=== PATIENT | male | born 1965 | race African-American/Black ===

== ENCOUNTER → 2020-05-19 | Outpatient (CLI) | payer BC, OTHER ==
[2020-05-19 12:35] LABS: MALB URINE SIEMENS 18.4 MG/L
[2020-05-19 12:40] LABS: ALBUMIN 3.8 GM/DL (3.2-5.2); BILIRUBIN,TOTAL 0.3 MG/DL (0.2-1.0); CALCIUM LEVEL 9.6 MG/DL (8.5-10.1); CREATININE FOR GFR 1.65 MG/DL (0.70-1.30); POTASSIUM SERUM 4.4 MEQ/L (3.5-5.1); TOTAL PROTEIN 7.5 GM/DL (6.4-8.2)
== END ==
LOC: M LAB 10:44
PROVIDERS: ATTEND Nurse Practitioner Family
DX: E11.9 Type 2 diabetes mellitus without complications (principal)

== ENCOUNTER → 2020-05-19 | Outpatient (CLI) | payer BC, OTHER ==
[2020-05-19 11:36] LABS: HEMATOCRIT 39.7 % (42.0-52.0); HEMOGLOBIN 12.9 g/dl (13.5-17.5)
== END ==
LOC: M LAB 10:48
PROVIDERS: ATTEND Nurse Practitioner Family
DX: E29.1 Testicular hypofunction (principal)

== ENCOUNTER → 2020-06-11 | Outpatient (CLI) | payer BC, OTHER | LOC: M LAB 12:48 | PROVIDERS: ATTEND Nurse Practitioner Family | DX: N40.0 Benign prostatic hyperplasia without lower urinary tract symptoms (principal) | CPT/HCPCS: 36415; G0103 ==

== ENCOUNTER → 2020-07-11 | Outpatient (CLI) | payer BC, OTHER ==
[2020-07-11 09:33] LABS: HEMATOCRIT 41.1 % (42.0-52.0); HEMOGLOBIN 13.2 g/dl (13.5-17.5)
== END ==
LOC: M LAB 08:50
PROVIDERS: ATTEND Nurse Practitioner Family
DX: E29.1 Testicular hypofunction (principal)

== ENCOUNTER → 2020-08-12 | Outpatient (CLI) | payer BC ==
--- NOTE | 2020-08-12 15:28 | REP ---
INDICATION: N63.0 R BREAST LUMP. Patient reports a palpable lump that he initially thought it was a sebaceous cyst. He tried 2 pop it. It swelled up to cord ower size and has since gone down somewhat. Positive family history breast cancer in mother. Lump at the 11 to 12 o'clock position right breast. COMPARISON: None. TECHNIQUE: Targeted right breast sonography 11 to 12 o'clock position in the area of the palpable abnormality. FINDINGS: At the level of the palpable abnormality. There is a ill-defined localized area of dermal thickening. Within the dermis there is hypoechoic area suggesting fluid with enhanced through transmission and a possible hypoechoic tract in into the underlying breast tissue. The underlying breast tissue is hyperechoic consistent with inflamed subcutaneous fat. The intradermal hypoechoic area measures 0.4 x 0.2 x 0.5 cm. This appears to extend virtually to the superficial surface of the dermis. The possible hypoechoic tract into the inflamed underlying tissue measures 0.6 cm in length. No breast mass is seen. There is no evidence of simple cyst. IMPRESSION: Findings are most consistent with inflammatory lesion of the dermis with inflammatory edema in the underlying fat. No masslike features are seen. BI-RADS category is felt to be best assigned as BI-RADS category 3 probably benign findings. Clinical follow-up is recommended. Suggest follow-up ultrasound in 2-3 months. Follow-up sonographic imaging should be considered if his signs and symptoms fail to regress or if they progress. <Electronically signed by Chente Murray > 08/12/20 1325
== END ==
LOC: M WHC 13:18
PROVIDERS: ATTEND Nurse Practitioner Family
DX: N63.0 Unspecified lump in unspecified breast (principal)

== ENCOUNTER → 2020-09-17 | Outpatient (CLI) | payer BC ==
[2020-09-17 10:57] LABS: HEMOGLOBIN A1c 9.4 %
== END ==
LOC: M LAB 09:26
PROVIDERS: ATTEND Nurse Practitioner Family
DX: E11.9 Type 2 diabetes mellitus without complications (principal)

== ENCOUNTER → 2020-10-03 | Outpatient (CLI) | payer BC ==
[2020-10-03 11:24] LABS: HEMATOCRIT 45.7 % (42.0-52.0); HEMOGLOBIN 14.8 g/dl (13.5-17.5)
[2020-10-06 18:07] LABS: TESTOSTERONE FREE (DIRECT) 11.2 pg/mL (7.2-24.0)
== END ==
LOC: M LAB 09:40
PROVIDERS: ATTEND Nurse Practitioner Family
DX: E29.1 Testicular hypofunction (principal); Z12.5 Encounter for screening for malignant neoplasm of prostate
CPT/HCPCS: 36415; 84402; 84403; 85014; 85018; G0103

== ENCOUNTER → 2020-12-28 | Outpatient (CLI) | payer BC ==
[2020-12-28 10:37] LABS: HEMATOCRIT 51.4 % (42.0-52.0); HEMOGLOBIN 16.5 g/dl (13.5-17.5)
[2020-12-29 12:10] LABS: TESTOSTERONE FREE (DIRECT) 9.7 pg/mL (7.2-24.0)
== END ==
LOC: M LAB 10:01
PROVIDERS: ATTEND Nurse Practitioner Family
DX: E29.1 Testicular hypofunction (principal)

== ENCOUNTER → 2020-12-28 | Outpatient (CLI) | payer BC ==
[2020-12-28 11:46] LABS: HEMOGLOBIN A1c 8.8 %
== END ==
LOC: M LAB 09:58
PROVIDERS: ATTEND Nurse Practitioner Family
DX: E11.9 Type 2 diabetes mellitus without complications (principal)

== ENCOUNTER → 2020-12-30 | Outpatient (REF) | LOC: M LAB 09:37 | PROVIDERS: ATTEND Nurse Practitioner Adult Health | DX: Z02.89 Encounter for other administrative examinations (principal) ==

== ENCOUNTER 2022-01-17 10:37 | Inpatient (IN) | payer BC, OTHER ==
[~2022-01-17] VITALS: Ht 177.8 cm; Wt 112.4 kg
[2022-01-17] MEDS ORDERED: NS 500 ML IV ONE (16:05)
[2022-01-17] MEDS ORDERED: ISOVUE-370 76% 100ML VIAL As Ordered ONE (16:47)
[2022-01-17 17:08] LABS: BASO # 0.1 10^3/uL (0.0-0.2); BASO % 0.6 % (0.0-1.0); EOS # 0.1 10^3/uL (0.0-0.5); EOS % 1.3 % (0.0-3.0); HEMATOCRIT 54.1 % (42.0-52.0); LYMPH # 2.4 10^3/uL (1.5-5.0); LYMPH % 29.8 % (24.0-44.0); MEAN CORPUSCULAR HEMOGLOBIN 32.9 pg (27.0-33.0); MEAN CORPUSCULAR HGB CONC 33.3 g/dl (32.0-36.5); MEAN CORPUSCULAR VOLUME 98.9 fl (80.0-96.0); MONO # 0.7 10^3/uL (0.0-0.8); MONO % 8.7 % (2.0-8.0); NEUTROPHILS # 4.9 10^3/uL (1.5-8.5); NEUTROPHILS % 59.4 % (36.0-66.0); PLATELET COUNT, AUTOMATED 236 10^3/uL (150-450); RED BLOOD COUNT 5.47 10^6/uL (4.30-6.10); WHITE BLOOD COUNT 8.2 10^3/uL (4.0-10.0)
[2022-01-17 17:26] LABS: RSV AMPLIFICATION NEGATIVE (NEGATIVE)
[2022-01-17 17:29] LABS: INR 0.93; PROTHROMBIN TIME 12.7 SECONDS (12.5-14.5)
[2022-01-17 17:30] LABS: CALCIUM LEVEL 10.2 MG/DL (8.5-10.1); CREATININE FOR GFR 1.77 MG/DL (0.70-1.30); GLOMERULAR FILTRATION RATE 42.4 (>56); PARTIAL THROMBOPLASTIN TIME 25.2 SECONDS (24.8-34.2); POTASSIUM SERUM 4.4 MEQ/L (3.5-5.1)
[2022-01-17 17:41] LABS: CK-MB VALUE MASS 1.5 NG/ML (<3.6); MB/CK RELATIVE INDEX 0.3 (< OR =4)
[2022-01-17 19:13] LABS: CK-MB VALUE MASS 1.6 NG/ML (<3.6); MB/CK RELATIVE INDEX 0.32 (< OR =4)
[2022-01-17] MEDS ORDERED: ASPIRIN 81 MG CHEW TABLET PO ONE (19:15)
[2022-01-17] MEDS ORDERED: ROSU40TA4 PO (20:05)
[2022-01-17] MEDS ORDERED: METF10004 PO (20:05)
[2022-01-17] MEDS ORDERED: CLOP75TA2 PO (20:05)
[2022-01-17] MEDS ORDERED: IRBE75TA4 PO (20:05)
[2022-01-17] MEDS ORDERED: GLIM2TAB29 PO (20:05)
[2022-01-17] MEDS ORDERED: AMLO1TAB25 PO (20:05)
[2022-01-17] MEDS ORDERED: BUSP10TA PO (20:05)
[2022-01-17] MEDS ORDERED: SILD20TA11 PO (20:05)
[2022-01-17] MEDS ORDERED: CHLO125TA PO (20:05)
[2022-01-17] MEDS ORDERED: ACET32TAB PO (20:05)
[2022-01-17] MEDS ORDERED: METO200T28 PO (20:05)
[2022-01-17] MEDS ORDERED: TAMS1CAP17 PO (20:05)
[2022-01-17] MEDS ORDERED: SPIR100T3 PO (20:05)
[2022-01-17 20:09] LABS: CHOLESTEROL RISK RATIO 4.731 (<5); HEMOGLOBIN A1c 8.7 %
[2022-01-17] MEDS: INSULIN LISPRO (NovoLOG) PER UNIT SC SCH (21:00)
[2022-01-17] MEDS ORDERED: ACETAMINOPHEN 325 MG TAB PO PRN (23:20)
[2022-01-17] MEDS ORDERED: GLUCAGON INJ 1MG VIAL SC PRN (23:30)
[2022-01-17] MEDS ORDERED: DEXTROSE 50% 50 ML SYRINGE IV PRN (23:30)
[2022-01-17] MEDS ORDERED: GLUCOSE 4GM CHEW TABLET PO PRN (23:30)
[2022-01-18] MEDS: busPIRone 10 MG TAB PO SCH ×3 (00:27→20:51)
[2022-01-18] MEDS: HEPARIN SOD (PORCINE) 5000UNITS/ML 1ML VIAL/SYRINGE SC SCH ×3 (06:19→20:51)
[2022-01-18] MEDS: INSULIN LISPRO (NovoLOG) PER UNIT SC SCH ×5 (07:30→20:35)
[2022-01-18 07:49] LABS: CALCIUM LEVEL 9.5 MG/DL (8.5-10.1); CREATININE FOR GFR 1.7 MG/DL (0.70-1.30); GLOMERULAR FILTRATION RATE 44.4 (>56); POTASSIUM SERUM 4.3 MEQ/L (3.5-5.1)
[2022-01-18 08:05] LABS: MAGNESIUM LEVEL 2.1 MG/DL (1.8-2.4)
[2022-01-18 08:48] LABS: BASO # 0.1 10^3/uL (0.0-0.2); BASO % 0.6 % (0.0-1.0); EOS # 0.2 10^3/uL (0.0-0.5); EOS % 1.8 % (0.0-3.0); HEMATOCRIT 48.6 % (42.0-52.0); HEMOGLOBIN 16.2 g/dl (13.5-17.5); LYMPH # 2.4 10^3/uL (1.5-5.0); LYMPH % 28.5 % (24.0-44.0); MEAN CORPUSCULAR HEMOGLOBIN 32.7 pg (27.0-33.0); MEAN CORPUSCULAR HGB CONC 33.3 g/dl (32.0-36.5); MONO # 0.7 10^3/uL (0.0-0.8); MONO % 8.5 % (2.0-8.0); NEUTROPHILS # 5.1 10^3/uL (1.5-8.5); NEUTROPHILS % 60.4 % (36.0-66.0); PLATELET COUNT, AUTOMATED 229 10^3/uL (150-450); RED BLOOD COUNT 4.96 10^6/uL (4.30-6.10); WHITE BLOOD COUNT 8.4 10^3/uL (4.0-10.0)
[2022-01-18] MEDS ORDERED: CHLORTHALIDONE 25 MG TAB PO SCH (09:00)
[2022-01-18] MEDS: SPIRONOLACTONE 50 MG TAB PO SCH ×2 (10:04→20:50)
[2022-01-18] MEDS: TAMSULOSIN 0.4 MG CAP PO SCH (10:04)
[2022-01-18] MEDS: CLOPIDOGREL 75 MG TAB PO SCH (10:04)
[2022-01-18] MEDS: METOPROLOL SUCC (TopROL XL) 100MG *XL* TAB PO SCH (10:04)
[2022-01-18] MEDS: ASPIRIN 81 MG CHEW TABLET PO SCH (10:04)
[2022-01-18] MEDS: ROSUVASTATIN 10 MG TAB (CRESTOR) PO SCH (10:05)
[2022-01-18 15:56] VITALS: BP 122/74
[2022-01-18 15:59] VITALS: BP 122/74
[2022-01-18] MEDS ORDERED: PILL CUTTER 1 EACH XX PRN (16:50)
[2022-01-18 17:55] VITALS: BP 119/74
[2022-01-18] MEDS: CHLORTHALIDONE 25 MG TAB PO SCH (17:57)
[2022-01-18] MEDS: IRBESARTAN 150MG TAB PO SCH (17:57)
[2022-01-18 20:29] VITALS: BP 133/89
[2022-01-19 02:05] VITALS: BP 115/70
[2022-01-19] MEDS: HEPARIN SOD (PORCINE) 5000UNITS/ML 1ML VIAL/SYRINGE SC SCH (05:14)
[2022-01-19 06:16] VITALS: BP 147/85
[2022-01-19] MEDS ORDERED: ASPI81CH8 PO (07:13)
[2022-01-19 07:22] LABS: BASO # 0.1 10^3/uL (0.0-0.2); BASO % 0.6 % (0.0-1.0); EOS # 0.2 10^3/uL (0.0-0.5); EOS % 2.1 % (0.0-3.0); HEMATOCRIT 49.6 % (42.0-52.0); HEMOGLOBIN 16.6 g/dl (13.5-17.5); LYMPH # 2.5 10^3/uL (1.5-5.0); LYMPH % 30.9 % (24.0-44.0); MEAN CORPUSCULAR HEMOGLOBIN 32.5 pg (27.0-33.0); MEAN CORPUSCULAR HGB CONC 33.5 g/dl (32.0-36.5); MEAN CORPUSCULAR VOLUME 97.1 fl (80.0-96.0); MONO # 0.6 10^3/uL (0.0-0.8); MONO % 7.4 % (2.0-8.0); NEUTROPHILS # 4.7 10^3/uL (1.5-8.5); NEUTROPHILS % 58.7 % (36.0-66.0); PLATELET COUNT, AUTOMATED 254 10^3/uL (150-450); RED BLOOD COUNT 5.11 10^6/uL (4.30-6.10)
[2022-01-19 08:12] LABS: CALCIUM LEVEL 9.8 MG/DL (8.5-10.1); CREATININE FOR GFR 1.76 MG/DL (0.70-1.30); GLOMERULAR FILTRATION RATE 42.7 (>56); MAGNESIUM LEVEL 2.2 MG/DL (1.8-2.4); POTASSIUM SERUM 4.6 MEQ/L (3.5-5.1)
[2022-01-19] MEDS: ROSUVASTATIN 10 MG TAB (CRESTOR) PO SCH (08:32)
[2022-01-19] MEDS: CHLORTHALIDONE 25 MG TAB PO SCH (08:33)
[2022-01-19] MEDS: TAMSULOSIN 0.4 MG CAP PO SCH (08:33)
[2022-01-19] MEDS: ASPIRIN 81 MG CHEW TABLET PO SCH (08:33)
[2022-01-19] MEDS: busPIRone 10 MG TAB PO SCH (08:33)
[2022-01-19] MEDS: CLOPIDOGREL 75 MG TAB PO SCH (08:33)
[2022-01-19] MEDS: SPIRONOLACTONE 50 MG TAB PO SCH (08:33)
[2022-01-19 08:34] VITALS: BP 121/77
[2022-01-19] MEDS: IRBESARTAN 150MG TAB PO SCH (08:34)
[2022-01-19] MEDS: METOPROLOL SUCC (TopROL XL) 100MG *XL* TAB PO SCH (08:34)
[2022-01-19] MEDS: INSULIN LISPRO (NovoLOG) PER UNIT SC SCH (08:35)
[2022-01-19 09:27] VITALS: BP 98/64
[2022-01-19 10:00] VITALS: BP 94/62
== END 2022-01-19 11:15 | disposition home health service (06) | DRG 45 ==
LOC: M ED 10:37 → M ED INP 23:18 → ENRESERV 01-18 13:47 → M MSPAV 01-18 15:53
PROVIDERS: ADMIT Internal Medicine; ATTEND Internal Medicine
PROC: BW28YZZ Computerized Tomography (CT Scan) of Head using Other Contrast (ICD-10-PCS; principal; 2022-01-17)
PROC: B246ZZZ Ultrasonography of Right and Left Heart (ICD-10-PCS; 2022-01-18)
DX: I63.531 Cerebral infarction due to unspecified occlusion or stenosis of right posterior cerebral artery (principal); I63.511 Cerebral infarction due to unspecified occlusion or stenosis of right middle cerebral artery; I12.9 Hypertensive chronic kidney disease with stage 1 through stage 4 chronic kidney disease, or unspecified chronic kidney disease; E11.22 Type 2 diabetes mellitus with diabetic chronic kidney disease; N18.32 Chronic kidney disease, stage 3b; I25.10 Atherosclerotic heart disease of native coronary artery without angina pectoris; E83.52 Hypercalcemia; F41.9 Anxiety disorder, unspecified; N40.0 Benign prostatic hyperplasia without lower urinary tract symptoms; Z20.822 Contact with and (suspected) exposure to COVID-19; E78.00 Pure hypercholesterolemia, unspecified; Z79.84 Long term (current) use of oral hypoglycemic drugs; Z79.899 Other long term (current) drug therapy; G81.94 Hemiplegia, unspecified affecting left nondominant side; I65.23 Occlusion and stenosis of bilateral carotid arteries; N52.9 Male erectile dysfunction, unspecified; Z79.02 Long term (current) use of antithrombotics/antiplatelets; R20.0 Anesthesia of skin; Z95.5 Presence of coronary angioplasty implant and graft; Z87.891 Personal history of nicotine dependence

== ENCOUNTER → 2022-07-19 | Outpatient (CLI) | payer OTHER ==
[~2022-07-19] MED LIST: ACET32TAB PO; AMIT50TA; AMLO1TAB25 PO; ASPI81CH8 PO; BUSP10TA PO; CHLO125TA PO; CLOP75TA2 PO; GABA-282; GLIM2TAB29 PO; IRBE75TA4 PO; METF10004 PO; METO200T28 PO; ROSU40TA4 PO; SILD20TA11 PO; SPIR100T3 PO; TAMS1CAP17 PO
[2022-07-19 13:58] LABS: HEMOGLOBIN A1c 6.5 % (4.0-6.0)
== END ==
LOC: M LAB 12:37
PROVIDERS: ATTEND Nurse Practitioner Family
DX: E11.9 Type 2 diabetes mellitus without complications (principal)

== ENCOUNTER → 2022-09-20 | Outpatient (CLI) | payer OTHER ==
[2022-09-20 15:48] LABS: HEMATOCRIT 35.4 % (42.0-52.0); MEAN CORPUSCULAR HEMOGLOBIN 33.9 pg (27.0-33.0); MEAN CORPUSCULAR HGB CONC 33.9 g/dl (32.0-36.5); PLATELET COUNT, AUTOMATED 192 10^3/uL (150-450); RED BLOOD COUNT 3.54 10^6/uL (4.30-6.10); WHITE BLOOD COUNT 5.9 10^3/uL (4.0-10.0)
[2022-09-20 16:11] LABS: CALCIUM LEVEL 9.4 MG/DL (8.5-10.1); CHOLESTEROL RISK RATIO 3.8 (<5); CREATININE FOR GFR 1.45 MG/DL (0.70-1.30); GLOMERULAR FILTRATION RATE 53.2 (>56); LDL CHOLESTEROL 62.6 MG/DL (<100); POTASSIUM SERUM 4.3 MMOL/L (3.5-5.1)
== END ==
LOC: M LAB 14:45
PROVIDERS: ATTEND Nurse Practitioner Family
DX: I25.10 Atherosclerotic heart disease of native coronary artery without angina pectoris (principal); N18.30 Chronic kidney disease, stage 3 unspecified

== ENCOUNTER → 2022-09-29 | Outpatient (CLI) | payer OTHER ==
[2022-09-29 17:02] LABS: HEMOGLOBIN A1c 7.6 % (4.0-6.0)
== END ==
LOC: M LAB 15:19
PROVIDERS: ATTEND Nurse Practitioner Family
DX: E11.9 Type 2 diabetes mellitus without complications (principal)

== ENCOUNTER → 2022-10-07 | Outpatient (CLI) | payer OTHER | LOC: M RAD 10:26 | PROVIDERS: ATTEND Physician Assistant | DX: I63.031 Cerebral infarction due to thrombosis of right carotid artery (principal) ==

== ENCOUNTER 2022-11-14 07:50 | Day surgery (SDC) | payer OTHER ==
[~2022-11-14] VITALS: Ht 177.8 cm; Wt 111.5 kg
[~2022-11-14 07:50] MED LIST changes: -AMIT50TA; +AMIT50TA PO; -GABA-282; +GABA-282 PO; +LIDOCAINE 2% 100MG/5ML SDV (FOR ANES.) As Ordered ONE; +NS 1,000 ML IV ONE; +propofoL 200 MG/20 ML VIAL As Ordered ONE
[2022-11-14] MEDS ORDERED: propofoL 200 MG/20 ML VIAL As Ordered ONE (08:51)
[2022-11-14 10:00] VITALS: BP 189/94; TEMP 97.5; O2SAT 99
== END 2022-11-14 09:55 | disposition home or self-care (01) ==
LOC: M OPP 07:50
PROVIDERS: ATTEND Surgery
DX: Z12.11 Encounter for screening for malignant neoplasm of colon (principal); D12.6 Benign neoplasm of colon, unspecified; K57.30 Diverticulosis of large intestine without perforation or abscess without bleeding; Z87.891 Personal history of nicotine dependence; G47.33 Obstructive sleep apnea (adult) (pediatric); Z79.01 Long term (current) use of anticoagulants; Z79.02 Long term (current) use of antithrombotics/antiplatelets; Z79.82 Long term (current) use of aspirin; Z79.84 Long term (current) use of oral hypoglycemic drugs; Z79.891 Long term (current) use of opiate analgesic; Z79.899 Other long term (current) drug therapy

== ENCOUNTER → 2023-01-03 | Outpatient (CLI) | payer OTHER ==
[~2023-01-03] MED LIST changes: -LIDOCAINE 2% 100MG/5ML SDV (FOR ANES.) As Ordered ONE; -NS 1,000 ML IV ONE; -propofoL 200 MG/20 ML VIAL As Ordered ONE
[2023-01-03 12:20] LABS: BASO # 0.1 10^3/uL (0.0-0.2); BASO % 0.7 % (0.0-1.0); EOS # 0.2 10^3/uL (0.0-0.5); EOS % 2.8 % (0.0-3.0); HEMOGLOBIN 10.4 g/dl (13.5-17.5); LYMPH # 2.8 10^3/uL (1.5-5.0); LYMPH % 37.6 % (24.0-44.0); MEAN CORPUSCULAR HEMOGLOBIN 33.2 pg (27.0-33.0); MEAN CORPUSCULAR HGB CONC 32.5 g/dl (32.0-36.5); MEAN CORPUSCULAR VOLUME 102.2 fl (80.0-96.0); MONO # 0.7 10^3/uL (0.0-0.8); MONO % 8.8 % (2.0-8.0); NEUTROPHILS # 3.7 10^3/uL (1.5-8.5); NEUTROPHILS % 49.7 % (36.0-66.0); PLATELET COUNT, AUTOMATED 218 10^3/uL (150-450); RED BLOOD COUNT 3.13 10^6/uL (4.30-6.10); WHITE BLOOD COUNT 7.5 10^3/uL (4.0-10.0)
[2023-01-03 12:42] LABS: HEMOGLOBIN A1c 6.4 % (4.0-6.0)
[2023-01-03 12:51] LABS: ALBUMIN 3.6 G/DL (3.2-5.2); ALKALINE PHOSPHATASE 92 U/L (46-116); ALT/SGPT 30 U/L (7.0-40); AST/SGOT 14 U/L (<34); BILIRUBIN,TOTAL < 0.2 MG/DL (0.3-1.2); BLOOD UREA NITROGEN 26 MG/DL (9-23); CALCIUM LEVEL 9.4 MG/DL (8.5-10.1); CARBON DIOXIDE LEVEL 26 MMOL/L (20-31); CHLORIDE LEVEL 104 MMOL/L (98-107); CREATININE FOR GFR 1.96 MG/DL (0.70-1.30); GLOMERULAR FILTRATION RATE 37.6 (>56); GLUCOSE, FASTING 148 MG/DL (60-100); POTASSIUM SERUM 5.7 MMOL/L (3.5-5.1); SODIUM LEVEL 137 MMOL/L (136-145); TOTAL PROTEIN 6.8 G/DL (5.7-8.2)
== END ==
LOC: M LAB 11:39
PROVIDERS: ATTEND Nurse Practitioner Family
DX: E11.9 Type 2 diabetes mellitus without complications (principal); I10 Essential (primary) hypertension

== ENCOUNTER → 2023-01-31 | Outpatient (REF) | payer OTHER ==
[2023-01-31 18:57] LABS: PERCENT SATURATION 23.3 % (19.7-50.0)
[2023-01-31 19:02] LABS: FERRITIN 192.4 NG/ML (10.5-307.3)
== END ==
LOC: M LAB REF 16:50
PROVIDERS: ATTEND Internal Medicine Nephrology
DX: N18.9 Chronic kidney disease, unspecified (principal); D63.1 Anemia in chronic kidney disease

== ENCOUNTER 2023-03-06 02:18 | Emergency (ER) | payer OTHER ==
[~2023-03-06] VITALS: Ht 177.8 cm; Wt 93.2 kg
[2023-03-06 02:19] VITALS: TEMP 96.6
[2023-03-06 03:37] LABS: BASO % 0.4 % (0.0-1.0); EOS % 0.1 % (0.0-3.0); HEMATOCRIT 34.8 % (42.0-52.0); HEMOGLOBIN 11.6 g/dl (13.5-17.5); LYMPH # 1.2 10^3/uL (1.5-5.0); LYMPH % 10.7 % (24.0-44.0); MEAN CORPUSCULAR HEMOGLOBIN 33.2 pg (27.0-33.0); MEAN CORPUSCULAR HGB CONC 33.3 g/dl (32.0-36.5); MEAN CORPUSCULAR VOLUME 99.7 fl (80.0-96.0); MONO # 0.6 10^3/uL (0.0-0.8); MONO % 5.1 % (2.0-8.0); NEUTROPHILS % 83.3 % (36.0-66.0); PLATELET COUNT, AUTOMATED 213 10^3/uL (150-450); RED BLOOD COUNT 3.49 10^6/uL (4.30-6.10); WHITE BLOOD COUNT 10.8 10^3/uL (4.0-10.0)
[2023-03-06] MEDS ORDERED: DESMOPRESSIN ACETATE IV ONE (03:40)
[2023-03-06] MEDS ORDERED: NS IV ONE (03:40)
[2023-03-06 03:52] LABS: INR 1.12; PROTHROMBIN TIME 14.1 SECONDS (12.5-14.5)
[2023-03-06 03:53] LABS: PARTIAL THROMBOPLASTIN TIME 29.3 SECONDS (24.8-34.2)
[2023-03-06] MEDS ORDERED: ONDANSETRON 4MG 2ML VIAL IV ONE (04:25)
[2023-03-06] MEDS ORDERED: MIDAZOLAM INJ 2MG/2ML VIAL IV STA (04:31)
[2023-03-06 04:57] LABS: ALBUMIN 4.1 G/DL (3.2-5.2); BILIRUBIN,TOTAL 0.2 MG/DL (0.3-1.2); CALCIUM LEVEL 10.7 MG/DL (8.5-10.1); CREATININE FOR GFR 2.41 MG/DL (0.70-1.30); GLOMERULAR FILTRATION RATE 29.5 (>56); POTASSIUM SERUM 6.6 MMOL/L (3.5-5.1); TOTAL PROTEIN 7.8 G/DL (5.7-8.2)
[2023-03-06] MEDS ORDERED: PATIROMER SORBITEX CALCIUM 8.4 GM POWDER PACKET (VELTASSA) PO ONE (05:05)
[2023-03-06] MEDS ORDERED: SODIUM BICARBONATE 8.4% INJ 50ML SYRINGE IV ONE (05:05)
[2023-03-06] MEDS ORDERED: CALCIUM GLUCONATE 1,000MG/10ML VIAL (100MG/ML) IV ONE (05:05)
[2023-03-06] MEDS ORDERED: DEXTROSE 50% 50ML SYRINGE IV ONE (05:05)
[2023-03-06] MEDS ORDERED: HumuLIN R (REGULAR) INSULIN (NovoLIN R) **100U/ML** PER UNIT IV ONE (05:05)
[2023-03-06 07:06] VITALS: BP 117/62; O2SAT 96
[2023-03-06 07:18] LABS: CALCIUM LEVEL 9.9 MG/DL (8.5-10.1); CREATININE FOR GFR 2.4 MG/DL (0.70-1.30); GLOMERULAR FILTRATION RATE 29.6 (>56); POTASSIUM SERUM 5.3 MMOL/L (3.5-5.1)
== END 2023-03-06 07:20 | disposition short-term general hospital (02) ==
LOC: M ED 02:18
DX: S06.360A Traumatic hemorrhage of cerebrum, unspecified, without loss of consciousness, initial encounter (principal); S06.6X0A Traumatic subarachnoid hemorrhage without loss of consciousness, initial encounter; S06.5X0A Traumatic subdural hemorrhage without loss of consciousness, initial encounter; W01.198A Fall on same level from slipping, tripping and stumbling with subsequent striking against other object, initial encounter; Y92.014 Private driveway to single-family (private) house as the place of occurrence of the external cause; N40.0 Benign prostatic hyperplasia without lower urinary tract symptoms; I10 Essential (primary) hypertension; F32.A Depression, unspecified; E78.5 Hyperlipidemia, unspecified
CPT/HCPCS: 36415; 70450; 72125; 80048; 80053; 85025; 85610; 85730; 96374; 96375; 99285; J0612; J1815; J2250; J2405; J2597

== ENCOUNTER → 2023-04-20 | Outpatient (CLI) | payer OTHER ==
[~2023-04-20] MED LIST changes: +IRBE75TA11 PO; -IRBE75TA4 PO
[2023-04-20 14:08] LABS: BASO % 0.7 % (0.0-1.0); EOS # 0.1 10^3/uL (0.0-0.5); EOS % 1.7 % (0.0-3.0); HEMATOCRIT 40.4 % (42.0-52.0); HEMOGLOBIN 12.8 g/dl (13.5-17.5); LYMPH # 2.2 10^3/uL (1.5-5.0); MEAN CORPUSCULAR HEMOGLOBIN 31.5 pg (27.0-33.0); MEAN CORPUSCULAR HGB CONC 31.7 g/dl (32.0-36.5); MEAN CORPUSCULAR VOLUME 99.5 fl (80.0-96.0); MONO # 0.5 10^3/uL (0.0-0.8); MONO % 8.1 % (2.0-8.0); NEUTROPHILS # 3.2 10^3/uL (1.5-8.5); NEUTROPHILS % 53.3 % (36.0-66.0); PLATELET COUNT, AUTOMATED 328 10^3/uL (150-450); RED BLOOD COUNT 4.06 10^6/uL (4.30-6.10)
== END ==
LOC: M PLALAB 10:57
PROVIDERS: ATTEND Physician Assistant
DX: E29.1 Testicular hypofunction (principal)

== ENCOUNTER → 2023-04-26 | Outpatient (CLI) | payer OTHER | LOC: M RAD 10:05 | PROVIDERS: ATTEND Physician Assistant | DX: I65.29 Occlusion and stenosis of unspecified carotid artery (principal) ==

== ENCOUNTER → 2023-06-02 | Outpatient (CLI) | payer OTHER ==
[2023-06-02 10:10] LABS: BASO % 0.6 % (0.0-1.0); EOS # 0.3 10^3/uL (0.0-0.5); EOS % 3.7 % (0.0-3.0); HEMATOCRIT 38.6 % (42.0-52.0); HEMOGLOBIN 12.2 g/dl (13.5-17.5); LYMPH # 1.7 10^3/uL (1.5-5.0); LYMPH % 24.7 % (24.0-44.0); MEAN CORPUSCULAR HEMOGLOBIN 30.6 pg (27.0-33.0); MEAN CORPUSCULAR HGB CONC 31.6 g/dl (32.0-36.5); MEAN CORPUSCULAR VOLUME 96.7 fl (80.0-96.0); MONO # 0.6 10^3/uL (0.0-0.8); MONO % 7.9 % (2.0-8.0); NEUTROPHILS # 4.4 10^3/uL (1.5-8.5); PLATELET COUNT, AUTOMATED 214 10^3/uL (150-450); RED BLOOD COUNT 3.99 10^6/uL (4.30-6.10)
[2023-06-02 10:23] LABS: HEMOGLOBIN A1c 6.4 % (4.0-6.0)
[2023-06-02 10:43] LABS: ALBUMIN 3.3 G/DL (3.2-5.2); BILIRUBIN,TOTAL 0.3 MG/DL (0.3-1.2); CALCIUM LEVEL 8.3 MG/DL (8.5-10.1); CREATININE FOR GFR 1.59 MG/DL (0.70-1.30); GLOMERULAR FILTRATION RATE 47.7 (>56); POTASSIUM SERUM 4.1 MMOL/L (3.5-5.1); TOTAL PROTEIN 6.6 G/DL (5.7-8.2)
== END ==
LOC: M LAB 09:23
PROVIDERS: ATTEND Nurse Practitioner Family
DX: E11.9 Type 2 diabetes mellitus without complications (principal); I10 Essential (primary) hypertension

== ENCOUNTER → 2023-08-10 | Outpatient (CLI) | payer OTHER ==
[~2023-08-10] MED LIST changes: +METO200T15 PO; -METO200T28 PO; -ROSU40TA4 PO; +ROSU40TA63 PO
[2023-08-10 10:31] LABS: HEMATOCRIT 42.3 % (42.0-52.0); MEAN CORPUSCULAR HEMOGLOBIN 30.6 pg (27.0-33.0); MEAN CORPUSCULAR HGB CONC 33.1 g/dl (32.0-36.5); MEAN CORPUSCULAR VOLUME 92.6 fl (80.0-96.0); PLATELET COUNT, AUTOMATED 264 10^3/uL (150-450); RED BLOOD COUNT 4.57 10^6/uL (4.30-6.10); WHITE BLOOD COUNT 8.3 10^3/uL (4.0-10.0)
== END ==
LOC: M LAB 08:50
PROVIDERS: ATTEND Physician Assistant
DX: E29.1 Testicular hypofunction (principal)

== ENCOUNTER 2023-09-14 10:54 | Emergency (ER) | payer OTHER ==
[~2023-09-14] VITALS: Ht 177.8 cm; Wt 97.1 kg
[2023-09-14] MEDS ORDERED: ISOVUE-370 76% 100ML VIAL As Ordered ONE (11:04)
[2023-09-14 12:13] LABS: BASO % 0.5 % (0.0-1.0); EOS # 0.1 10^3/uL (0.0-0.5); EOS % 1.7 % (0.0-3.0); HEMATOCRIT 43.5 % (42.0-52.0); HEMOGLOBIN 13.9 g/dl (13.5-17.5); LYMPH # 1.9 10^3/uL (1.5-5.0); MEAN CORPUSCULAR HEMOGLOBIN 31.6 pg (27.0-33.0); MEAN CORPUSCULAR VOLUME 98.9 fl (80.0-96.0); MONO # 0.5 10^3/uL (0.0-0.8); MONO % 8.8 % (2.0-8.0); NEUTROPHILS # 3.3 10^3/uL (1.5-8.5); NEUTROPHILS % 55.8 % (36.0-66.0); PLATELET COUNT, AUTOMATED 314 10^3/uL (150-450); WHITE BLOOD COUNT 5.8 10^3/uL (4.0-10.0)
[2023-09-14 12:24] LABS: INR 1.01; PARTIAL THROMBOPLASTIN TIME 26.9 SECONDS (24.8-34.2)
[2023-09-14 12:29] LABS: BILIRUBIN,DIRECT 0.1 MG/DL (<0.4); BILIRUBIN,TOTAL 0.5 MG/DL (0.3-1.2); CALCIUM LEVEL 10.4 MG/DL (8.5-10.1); CK-MB VALUE MASS 1.4 NG/ML (<3.6); CREATININE FOR GFR 1.43 MG/DL (0.70-1.30); GLOMERULAR FILTRATION RATE 53.9 (>56); MB/CK RELATIVE INDEX 1.04 (< OR =4); POTASSIUM SERUM 4.3 MMOL/L (3.5-5.1); TOTAL PROTEIN 7.8 G/DL (5.7-8.2)
[2023-09-14] MEDS ORDERED: BACL10TA2 PO (14:01)
[2023-09-14] MEDS ORDERED: ASPI81CH33 PO (14:01)
[2023-09-14] MEDS ORDERED: JARD1TAB PO (14:01)
[2023-09-14] MEDS ORDERED: GABA-1171 PO (14:01)
[2023-09-14] MEDS ORDERED: XALA0.007 OU (14:01)
[2023-09-14] MEDS ORDERED: HOME MED LIST COMPLETE! XX SCH (14:05)
[2023-09-14 14:45] VITALS: O2SAT 99
[2023-09-14 14:55] VITALS: BP 163/87
[2023-09-14 15:02] VITALS: TEMP 98
== END 2023-09-14 15:37 | disposition short-term general hospital (02) ==
LOC: M ED 10:54
DX: I62.00 Nontraumatic subdural hemorrhage, unspecified (principal); I10 Essential (primary) hypertension; E78.5 Hyperlipidemia, unspecified; Z87.891 Personal history of nicotine dependence; Z86.79 Personal history of other diseases of the circulatory system; Z79.01 Long term (current) use of anticoagulants; Z79.82 Long term (current) use of aspirin; Z79.899 Other long term (current) drug therapy
CPT/HCPCS: 36415; 70450; 71045; 80047; 80048; 80076; 82550; 82553; 84484; 85025; 85610; 85730; 86850; 86900; 86901; 93005; 93041; 94760; 99285; Q9967

== ENCOUNTER 2023-09-27 14:58 | Inpatient (IN) | payer OTHER ==
[~2023-09-27] VITALS: Ht 177.8 cm; Wt 86.0 kg
[~2023-09-27 14:58] MED LIST changes: +ASPI81CH33 PO; +BACL10TA2 PO; +GABA-1171 PO; +JARD1TAB PO; +XALA0.007 OU
[2023-09-27 18:38] VITALS: BP 137/84; TEMP 97.6; O2SAT 100
[2023-09-27] MEDS ORDERED: DEXTROSE 50% 50ML SYRINGE IV PRN (18:55)
[2023-09-27] MEDS ORDERED: GLUCAGON INJ 1MG VIAL SC PRN (18:55)
[2023-09-27] MEDS ORDERED: GLUCOSE 4 GM CHEW PO PRN (18:55)
[2023-09-27] MEDS ORDERED: ACETAMINOPHEN TAB 650MG DOSE (2X325MG) PO PRN (18:55)
[2023-09-27] MEDS ORDERED: BACLOFEN 10 MG TAB PO PRN (18:55)
[2023-09-27 20:00] VITALS: BP 137/84; TEMP 97.6; O2SAT 100
[2023-09-27] MEDS ORDERED: busPIRone 5 MG TAB PO PRN (20:00)
[2023-09-27] MEDS: INSULIN LISPRO (NovoLOG) PER UNIT SC SCH (20:44)
[2023-09-27] MEDS ORDERED: AMITRIPTYLINE 50 MG TAB PO SCH (21:00)
[2023-09-27] MEDS ORDERED: ASPI81TA26 PO (21:39)
[2023-09-27] MEDS ORDERED: AMIT-255 PO (21:39)
[2023-09-27] MEDS ORDERED: PANT40TA29 PO (21:39)
[2023-09-27] MEDS ORDERED: DEXA4TA PO (21:39)
[2023-09-27] MEDS ORDERED: SENN-186 PO (21:39)
[2023-09-27] MEDS ORDERED: KEPP1TAB PO (21:39)
[2023-09-27] MEDS ORDERED: ATOR80TA59 PO (21:39)
[2023-09-27] MEDS ORDERED: HYDR20VI2 IV (21:39)
[2023-09-27] MEDS ORDERED: TOPR50TA PO (21:39)
[2023-09-27] MEDS ORDERED: HEPA1INJ SC (21:39)
[2023-09-27] MEDS ORDERED: HUMA100I3 SC (21:39)
[2023-09-27] MEDS ORDERED: METR60GE3 TOP (21:47)
[2023-09-27] MEDS ORDERED: ETHO250C3 PO (21:47)
[2023-09-27] MEDS ORDERED: DULO30CA9 PO (21:47)
[2023-09-27] MEDS ORDERED: HOME MED LIST COMPLETE! XX SCH ×2 (21:50→22:15)
[2023-09-27] MEDS: FLUDROCORTISONE ACETATE 0.1 MG TAB PO SCH (22:50)
[2023-09-27] MEDS: dexAMETHasone 4 MG TAB PO SCH (22:53)
[2023-09-27] MEDS: levETIRAcetam 250MG TABLET (KEPPRA) PO SCH (22:53)
[2023-09-27] MEDS: PANTOPRAZOLE 40MG TAB (PROTONIX) PO SCH (22:53)
[2023-09-27] MEDS: AMITRIPTYLINE 25MG TABLET PO SCH (22:54)
[2023-09-27] MEDS: HEPARIN SOD (PORCINE) 5000UNITS/ML 1ML VIAL/SYRINGE SQ SCH (22:54)
[2023-09-27] MEDS: LATANOPROST 0.005% OPHTH SOLN 2.5 ML OU SCH (22:54)
[2023-09-28 04:00] VITALS: BP 127/74; TEMP 97.8; O2SAT 96
[2023-09-28] MEDS: INSULIN LISPRO (NovoLOG) PER UNIT SC SCH (07:46)
[2023-09-28] MEDS: ASPIRIN 81MG CHEW TABLET PO SCH (07:47)
[2023-09-28] MEDS: METOPROLOL SUCC *XL* 25MG TAB (TopROL *XL*) PO SCH (07:48)
[2023-09-28] MEDS: ROSUVASTATIN 10 MG TAB (CRESTOR) PO SCH (07:48)
[2023-09-28 12:00] VITALS: BP 119/68; TEMP 97.8; O2SAT 98
[2023-09-28 20:00] VITALS: BP 124/58; TEMP 98; O2SAT 94
[2023-09-29 04:00] VITALS: BP 121/67; TEMP 97.4; O2SAT 99
[2023-09-29 12:05] VITALS: BP 125/71; TEMP 97.3; O2SAT 100
[2023-09-29 13:44] LABS: HEMATOCRIT 40.5 % (42.0-52.0); HEMOGLOBIN 13.3 g/dl (13.5-17.5); MEAN CORPUSCULAR HEMOGLOBIN 31.7 pg (27.0-33.0); MEAN CORPUSCULAR HGB CONC 32.8 g/dl (32.0-36.5); MEAN CORPUSCULAR VOLUME 96.7 fl (80.0-96.0); PLATELET COUNT, AUTOMATED 227 10^3/uL (150-450); RED BLOOD COUNT 4.19 10^6/uL (4.30-6.10); WHITE BLOOD COUNT 17.9 10^3/uL (4.0-10.0)
[2023-09-29 14:03] LABS: CALCIUM LEVEL 8.8 MG/DL (8.5-10.1); CREATININE FOR GFR 1.36 MG/DL (0.70-1.30); GLOMERULAR FILTRATION RATE 57.1 (>56); POTASSIUM SERUM 4.7 MMOL/L (3.5-5.1)
[2023-09-29] MEDS ORDERED: dexAMETHasone 4 MG TAB PO SCH (15:08)
[2023-09-29 15:44] VITALS: BP 148/67
[2023-09-29 15:45] VITALS: BP 110/66
[2023-09-29 15:46] VITALS: BP 138/64
[2023-09-29 20:00] VITALS: BP 129/60; TEMP 98; O2SAT 98
[2023-09-30 05:08] VITALS: BP 123/68; TEMP 97.8; O2SAT 99
[2023-09-30 08:35] LABS: HEMOGLOBIN 12.4 g/dl (13.5-17.5); MEAN CORPUSCULAR HEMOGLOBIN 32.4 pg (27.0-33.0); MEAN CORPUSCULAR HGB CONC 33.5 g/dl (32.0-36.5); MEAN CORPUSCULAR VOLUME 96.6 fl (80.0-96.0); PLATELET COUNT, AUTOMATED 205 10^3/uL (150-450); RED BLOOD COUNT 3.83 10^6/uL (4.30-6.10); WHITE BLOOD COUNT 13.7 10^3/uL (4.0-10.0)
[2023-09-30 08:58] LABS: ALBUMIN 2.7 G/DL (3.2-5.2); ALKALINE PHOSPHATASE 68 U/L (46-116); ALT/SGPT 32 U/L (7.0-40); AST/SGOT 10 U/L (<34); BILIRUBIN,TOTAL 0.5 MG/DL (0.3-1.2); BLOOD UREA NITROGEN 27 MG/DL (9-23); CALCIUM LEVEL 8.4 MG/DL (8.5-10.1); CARBON DIOXIDE LEVEL 28 MMOL/L (20-31); CHLORIDE LEVEL 102 MMOL/L (98-107); CREATININE FOR GFR 1.25 MG/DL (0.70-1.30); GLOMERULAR FILTRATION RATE > 60.0 (>56); GLUCOSE, FASTING 179 MG/DL (60-100); POTASSIUM SERUM 4.2 MMOL/L (3.5-5.1); SODIUM LEVEL 133 MMOL/L (136-145); TOTAL PROTEIN 5.2 G/DL (5.7-8.2)
[2023-09-30 12:00] VITALS: BP 128/71; TEMP 98.2; O2SAT 100
[2023-09-30 20:00] VITALS: BP 107/63; TEMP 97.7; O2SAT 96
[2023-09-30] MEDS: dexAMETHasone 1 MG TAB PO SCH (20:05)
[2023-10-01 04:00] VITALS: BP 154/74; TEMP 97.2; O2SAT 100
[2023-10-01 12:00] VITALS: BP 126/59; TEMP 97.1; O2SAT 99
[2023-10-01 20:15] VITALS: BP 124/58; TEMP 97.9; O2SAT 98
[2023-10-02 04:00] VITALS: BP 144/82; TEMP 97.9; O2SAT 100
[2023-10-02 12:00] VITALS: BP 123/69; TEMP 97.1; O2SAT 100
[2023-10-02 20:00] VITALS: BP 142/66; TEMP 98; O2SAT 98
[2023-10-03 04:00] VITALS: BP 137/77; TEMP 98; O2SAT 100
[2023-10-03 08:39] LABS: HEMATOCRIT 38.4 % (42.0-52.0); HEMOGLOBIN 12.4 g/dl (13.5-17.5); MEAN CORPUSCULAR HEMOGLOBIN 31.4 pg (27.0-33.0); MEAN CORPUSCULAR HGB CONC 32.3 g/dl (32.0-36.5); MEAN CORPUSCULAR VOLUME 97.2 fl (80.0-96.0); PLATELET COUNT, AUTOMATED 209 10^3/uL (150-450); RED BLOOD COUNT 3.95 10^6/uL (4.30-6.10)
[2023-10-03 12:00] VITALS: BP 127/76; TEMP 97.3; O2SAT 99
[2023-10-03 20:12] VITALS: BP 111/60; TEMP 98.1; O2SAT 99
[2023-10-03] MEDS: RAMELTEON 8 MG TAB (ROZEREM) PO PRN (20:34)
[2023-10-04 04:00] VITALS: BP 152/70; TEMP 97.5; O2SAT 89
[2023-10-04 04:30] VITALS: O2SAT 94
[2023-10-04 12:00] VITALS: BP 112/57; TEMP 97.9; O2SAT 99
[2023-10-04 20:00] VITALS: BP 132/66; TEMP 97.1; O2SAT 100
[2023-10-05 04:00] VITALS: BP 132/82; TEMP 97.4; O2SAT 99
[2023-10-05 12:00] VITALS: BP 120/70; TEMP 97.6; O2SAT 98
[2023-10-05 20:00] VITALS: TEMP 97.6; O2SAT 98
[2023-10-06 04:00] VITALS: TEMP 97.5; O2SAT 100
[2023-10-06 09:10] LABS: HEMATOCRIT 41.6 % (42.0-52.0); HEMOGLOBIN 13.4 g/dl (13.5-17.5); MEAN CORPUSCULAR HEMOGLOBIN 32.1 pg (27.0-33.0); MEAN CORPUSCULAR HGB CONC 32.2 g/dl (32.0-36.5); MEAN CORPUSCULAR VOLUME 99.5 fl (80.0-96.0); PLATELET COUNT, AUTOMATED 187 10^3/uL (150-450); RED BLOOD COUNT 4.18 10^6/uL (4.30-6.10); WHITE BLOOD COUNT 12.1 10^3/uL (4.0-10.0)
[2023-10-06 12:00] VITALS: BP 118/72; TEMP 97.7; O2SAT 100
[2023-10-06 20:00] VITALS: BP 108/53; TEMP 97.7; O2SAT 99
[2023-10-07 04:00] VITALS: BP 133/65; TEMP 97.3; O2SAT 100
[2023-10-07] MEDS: SENNA 8.6 MG TAB (SENOKOT) PO PRN (07:20)
[2023-10-07] MEDS: GLIMEPIRIDE 2 MG TAB PO SCH (07:20)
[2023-10-07 12:00] VITALS: BP 116/68; TEMP 97.6; O2SAT 99
[2023-10-07 20:00] VITALS: BP 123/59; TEMP 97.3; O2SAT 99
[2023-10-07] MEDS ORDERED: FLUDROCORTISONE ACETATE 0.1 MG TAB PO PRN (21:00)
[2023-10-08 04:00] VITALS: BP 134/79; TEMP 97.4; O2SAT 100
[2023-10-08 12:00] VITALS: BP 116/60; TEMP 97.4; O2SAT 100
[2023-10-08 20:00] VITALS: BP 115/57; TEMP 97.8; O2SAT 95
[2023-10-09 04:00] VITALS: BP 129/70; TEMP 97.1; O2SAT 99
[2023-10-09 10:53] LABS: HEMATOCRIT 45.4 % (42.0-52.0); HEMOGLOBIN 14.7 g/dl (13.5-17.5); MEAN CORPUSCULAR HEMOGLOBIN 32.7 pg (27.0-33.0); MEAN CORPUSCULAR HGB CONC 32.4 g/dl (32.0-36.5); MEAN CORPUSCULAR VOLUME 101.1 fl (80.0-96.0); PLATELET COUNT, AUTOMATED 163 10^3/uL (150-450); RED BLOOD COUNT 4.49 10^6/uL (4.30-6.10); WHITE BLOOD COUNT 6.8 10^3/uL (4.0-10.0)
[2023-10-09 12:00] VITALS: BP 111/72; TEMP 97.6; O2SAT 98
[2023-10-09 20:00] VITALS: TEMP 97.6; O2SAT 99
[2023-10-10 04:00] VITALS: BP 132/79; TEMP 97.1; O2SAT 100
[2023-10-10] MEDS ORDERED: DEXA1TA PO (08:15)
[2023-10-10] MEDS ORDERED: GLIM2TAB29 PO (08:15)
[2023-10-10] MEDS ORDERED: METO1TAB32 PO (08:15)
[2023-10-10] MEDS ORDERED: KEPP250T5 PO (08:15)
[2023-10-10 09:52] VITALS: BP 132/79
== END 2023-10-10 12:00 | disposition home health service (06) | DRG 52 ==
LOC: M PM&R 18:26
PROVIDERS: ADMIT Student in an Organized Health Care Education/Training Program; ATTEND Physical Medicine & Rehabilitation
DX: G93.5 Compression of brain (principal); G93.6 Cerebral edema; R56.9 Unspecified convulsions; I69.05 Hemiplegia and hemiparesis following nontraumatic subarachnoid hemorrhage; E87.1 Hypo-osmolality and hyponatremia; I12.9 Hypertensive chronic kidney disease with stage 1 through stage 4 chronic kidney disease, or unspecified chronic kidney disease; E11.9 Type 2 diabetes mellitus without complications; D72.829 Elevated white blood cell count, unspecified; N18.32 Chronic kidney disease, stage 3b; E83.52 Hypercalcemia; Z95.2 Presence of prosthetic heart valve; R29.6 Repeated falls; G47.33 Obstructive sleep apnea (adult) (pediatric); F41.9 Anxiety disorder, unspecified; N40.0 Benign prostatic hyperplasia without lower urinary tract symptoms; Z87.891 Personal history of nicotine dependence; H40.9 Unspecified glaucoma; R32 Unspecified urinary incontinence; I95.1 Orthostatic hypotension; Z79.899 Other long term (current) drug therapy; Z79.82 Long term (current) use of aspirin; I25.10 Atherosclerotic heart disease of native coronary artery without angina pectoris; M62.81 Muscle weakness (generalized); F39 Unspecified mood [affective] disorder

== ENCOUNTER → 2023-11-07 | Outpatient (CLI) | payer OTHER, MEDICAID ==
[~2023-11-07] MED LIST changes: +AMIT-255 PO; +ASPI81TA26 PO; +ATOR80TA59 PO; +DEXA1TA PO; +DEXA4TA PO; +DULO30CA9 PO; +ETHO250C3 PO; +HEPA1INJ SC; +HUMA100I3 SC; +HYDR20VI2 IV; +KEPP1TAB PO; +KEPP250T5 PO; +METO1TAB32 PO; +METR60GE3 TOP; +PANT40TA29 PO; +SENN-186 PO; +TOPR50TA PO
[2023-11-07 15:24] LABS: BASO % 0.5 % (0.0-1.0); EOS # 0.1 10^3/uL (0.0-0.5); EOS % 1.3 % (0.0-3.0); HEMATOCRIT 38.1 % (42.0-52.0); HEMOGLOBIN 12.5 g/dl (13.5-17.5); LYMPH # 2.8 10^3/uL (1.5-5.0); LYMPH % 36.6 % (24.0-44.0); MEAN CORPUSCULAR HEMOGLOBIN 31.5 pg (27.0-33.0); MEAN CORPUSCULAR HGB CONC 32.8 g/dl (32.0-36.5); MONO # 0.7 10^3/uL (0.0-0.8); MONO % 9.4 % (2.0-8.0); NEUTROPHILS # 3.9 10^3/uL (1.5-8.5); NEUTROPHILS % 51.9 % (36.0-66.0); PLATELET COUNT, AUTOMATED 235 10^3/uL (150-450); RED BLOOD COUNT 3.97 10^6/uL (4.30-6.10); WHITE BLOOD COUNT 7.5 10^3/uL (4.0-10.0)
[2023-11-07 15:38] LABS: CREATININE, URINE 149.7 MG/DL
[2023-11-07 15:39] LABS: MAU/CREAT RATIO 15.3 MCG/MG (0.0-30.0)
[2023-11-07 15:40] LABS: ALBUMIN 3.3 G/DL (3.2-5.2); ALKALINE PHOSPHATASE 120 U/L (46-116); ALT/SGPT 12 U/L (7.0-40); AST/SGOT 13 U/L (<34); BILIRUBIN,TOTAL 0.3 MG/DL (0.3-1.2); BLOOD UREA NITROGEN 9 MG/DL (9-23); CALCIUM LEVEL 8.9 MG/DL (8.5-10.1); CARBON DIOXIDE LEVEL 30 MMOL/L (20-31); CHLORIDE LEVEL 105 MMOL/L (98-107); CHOLESTEROL LEVEL 139 MG/DL (<200); CHOLESTEROL RISK RATIO 2.93 (<5); CREATININE FOR GFR 1.27 MG/DL (0.70-1.30); GLOMERULAR FILTRATION RATE > 60.0 (>56); GLUCOSE, FASTING 63 MG/DL (60-100); HDL CHOLESTEROL 47.4 MG/DL (>40); LDL CHOLESTEROL 70.6 MG/DL (<100); NON-HDL-C 91.6 MG/DL; POTASSIUM SERUM 3.5 MMOL/L (3.5-5.1); SODIUM LEVEL 138 MMOL/L (136-145); TOTAL PROTEIN 6.8 G/DL (5.7-8.2); TRIGLYCERIDES LEVEL 105 MG/DL (<150)
[2023-11-07 15:56] LABS: HEMOGLOBIN A1c 6.4 % (4.0-6.0)
== END ==
LOC: M LAB 14:39
PROVIDERS: ATTEND Nurse Practitioner Family
DX: E78.2 Mixed hyperlipidemia (principal); E11.9 Type 2 diabetes mellitus without complications; I10 Essential (primary) hypertension

== ENCOUNTER 2023-12-06 11:09 | Emergency (ER) | payer MEDICAID, OTHER ==
[~2023-12-06] VITALS: Ht 177.8 cm; Wt 97.6 kg
[~2023-12-06 11:09] MED LIST changes: -ROSU40TA63 PO; +ROSU40TA81 PO
[2023-12-06 12:50] LABS: CALCIUM LEVEL 8.9 MG/DL (8.5-10.1); CREATININE FOR GFR 1.46 MG/DL (0.70-1.30); GLOMERULAR FILTRATION RATE 52.6 (>56); POTASSIUM SERUM 3.7 MMOL/L (3.5-5.1)
[2023-12-06 14:31] VITALS: O2SAT 100
[2023-12-06 14:45] VITALS: BP 188/86
[2023-12-06] MEDS ORDERED: PREDOPD OS (14:54)
[2023-12-06] MEDS ORDERED: NITR0.4S14 SL (14:54)
[2023-12-06] MEDS ORDERED: ROSU40TA81 PO (14:54)
[2023-12-06] MEDS ORDERED: METO1TAB7 PO (14:54)
[2023-12-06] MEDS ORDERED: ASPI81CH48 PO (14:54)
[2023-12-06] MEDS ORDERED: HOME MED LIST COMPLETE! XX SCH (14:55)
[2023-12-06] MEDS ORDERED: CHLO125TA PO (14:57)
[2023-12-06 15:13] VITALS: TEMP 97.8
== END 2023-12-06 15:14 | disposition home or self-care (01) ==
LOC: EDBD 11:09 → M ED 11:09
DX: I10 Essential (primary) hypertension (principal); Z79.82 Long term (current) use of aspirin; Z79.52 Long term (current) use of systemic steroids; Z79.899 Other long term (current) drug therapy

== ENCOUNTER → 2024-01-12 | Outpatient (CLI) | payer OTHER ==
[~2024-01-12] MED LIST changes: +ASPI81CH48 PO; +GABA-1172 PO; -GABA-282 PO; +METO1TAB7 PO; +NITR0.4S14 SL; +PREDOPD OS
[2024-01-12 15:56] LABS: CALCIUM LEVEL 9.4 MG/DL (8.5-10.1); CREATININE FOR GFR 1.73 MG/DL (0.70-1.30); GLOMERULAR FILTRATION RATE 43.3 (>56); POTASSIUM SERUM 3.7 MMOL/L (3.5-5.1)
== END ==
LOC: M LAB 14:55
PROVIDERS: ATTEND Internal Medicine Cardiovascular Disease
DX: I10 Essential (primary) hypertension (principal)

== ENCOUNTER → 2024-02-15 | Outpatient (CLI) | payer OTHER ==
[2024-02-15 08:46] LABS: HEMATOCRIT 48.7 % (42.0-52.0); HEMOGLOBIN 15.4 g/dl (13.5-17.5); MEAN CORPUSCULAR HEMOGLOBIN 28.4 pg (27.0-33.0); MEAN CORPUSCULAR HGB CONC 31.6 g/dl (32.0-36.5); MEAN CORPUSCULAR VOLUME 89.9 fl (80.0-96.0); PLATELET COUNT, AUTOMATED 235 10^3/uL (150-450); RED BLOOD COUNT 5.42 10^6/uL (4.30-6.10); WHITE BLOOD COUNT 6.9 10^3/uL (4.0-10.0)
[2024-02-15 09:08] LABS: PSA SCREENING 1.1 NG/ML (< 4.00)
== END ==
LOC: M LAB 07:16
PROVIDERS: ATTEND Physician Assistant
DX: E29.1 Testicular hypofunction (principal)

== ENCOUNTER → 2024-02-15 | Outpatient (CLI) | payer OTHER ==
[2024-02-15 08:47] LABS: BASO % 0.4 % (0.0-1.0); EOS # 0.1 10^3/uL (0.0-0.5); EOS % 1.9 % (0.0-3.0); HEMATOCRIT 49.4 % (42.0-52.0); HEMOGLOBIN 15.6 g/dl (13.5-17.5); LYMPH # 2.3 10^3/uL (1.5-5.0); LYMPH % 32.8 % (24.0-44.0); MEAN CORPUSCULAR HEMOGLOBIN 28.6 pg (27.0-33.0); MEAN CORPUSCULAR HGB CONC 31.6 g/dl (32.0-36.5); MEAN CORPUSCULAR VOLUME 90.6 fl (80.0-96.0); MONO # 0.7 10^3/uL (0.0-0.8); NEUTROPHILS # 3.8 10^3/uL (1.5-8.5); NEUTROPHILS % 54.8 % (36.0-66.0); RED BLOOD COUNT 5.45 10^6/uL (4.30-6.10); WHITE BLOOD COUNT 6.9 10^3/uL (4.0-10.0)
[2024-02-15 09:09] LABS: CREATININE, URINE 57.9 MG/DL; MAU/CREAT RATIO 13.8 MCG/MG (0.0-30.0)
[2024-02-15 09:11] LABS: ALKALINE PHOSPHATASE 130 U/L (40-129); ALT/SGPT 9 U/L (7.0-40); AST/SGOT < 8 U/L (<34); BILIRUBIN,TOTAL 0.5 MG/DL (0.3-1.2); BLOOD UREA NITROGEN 11 MG/DL (9-23); CALCIUM LEVEL 9.8 MG/DL (8.5-10.1); CARBON DIOXIDE LEVEL 26 MMOL/L (20-31); CHLORIDE LEVEL 100 MMOL/L (98-107); CHOLESTEROL LEVEL 161 MG/DL (<200); CHOLESTEROL RISK RATIO 3.41 (<5); CREATININE FOR GFR 1.79 MG/DL (0.70-1.30); GLOMERULAR FILTRATION RATE 41.6 (>56); GLUCOSE, FASTING 152 MG/DL (60-100); HDL CHOLESTEROL 47.2 MG/DL (>40); LDL CHOLESTEROL 88.4 MG/DL (<100); NON-HDL-C 113.8 MG/DL; POTASSIUM SERUM 3.8 MMOL/L (3.5-5.1); SODIUM LEVEL 136 MMOL/L (136-145); TOTAL PROTEIN 8.3 G/DL (5.7-8.2); TRIGLYCERIDES LEVEL 127 MG/DL (<150)
[2024-02-15 09:13] LABS: TESTOSTERONE 510 NG/DL (241-827)
[2024-02-15 09:25] LABS: HEMOGLOBIN A1c 6.6 % (4.0-6.0)
== END ==
LOC: M LAB 07:14
PROVIDERS: ATTEND Nurse Practitioner Family
DX: E11.9 Type 2 diabetes mellitus without complications (principal)

== ENCOUNTER → 2024-04-30 | Outpatient (CLI) | payer OTHER | LOC: M RAD 10:32 | PROVIDERS: ATTEND Physician Assistant | DX: I65.29 Occlusion and stenosis of unspecified carotid artery (principal) ==

== ENCOUNTER → 2024-07-04 | Outpatient (CLI) | payer MEDICARE, OTHER ==
[2024-07-04 09:57] LABS: HEMATOCRIT 44.1 % (42.0-52.0); HEMOGLOBIN 13.8 g/dl (13.5-17.5); MEAN CORPUSCULAR HEMOGLOBIN 28.8 pg (27.0-33.0); MEAN CORPUSCULAR HGB CONC 31.3 g/dl (32.0-36.5); MEAN CORPUSCULAR VOLUME 91.9 fl (80.0-96.0); PLATELET COUNT, AUTOMATED 204 10^3/uL (150-450)
== END ==
LOC: M LAB 09:17
PROVIDERS: ATTEND Physician Assistant
DX: E29.1 Testicular hypofunction (principal)

== ENCOUNTER → 2024-10-28 | Outpatient (CLI) | payer MEDICARE | LOC: M RAD 15:14 | PROVIDERS: ATTEND Student in an Organized Health Care Education/Training Program | DX: M47.812 Spondylosis without myelopathy or radiculopathy, cervical region (principal); M50.11 Cervical disc disorder with radiculopathy, high cervical region; Z98.1 Arthrodesis status; M48.02 Spinal stenosis, cervical region; M50.13 Cervical disc disorder with radiculopathy, cervicothoracic region ==

== ENCOUNTER → 2024-11-25 | Outpatient (CLI) | payer MEDICARE ==
[~2024-11-25] MED LIST changes: -SILD20TA11 PO; +SILD20TA64 PO
[2024-11-25 09:34] LABS: PLATELET COUNT, AUTOMATED 181 10^3/uL (150-450)
== END ==
LOC: M LAB 08:43
PROVIDERS: ATTEND Physician Assistant
DX: E29.1 Testicular hypofunction (principal)

== ENCOUNTER → 2024-11-26 | Outpatient (CLI) | payer MEDICARE ==
[~2024-11-26] MED LIST changes: +SILD20TA11 PO; -SILD20TA64 PO
== END ==
LOC: M RAD 12:18
PROVIDERS: ATTEND Nurse Practitioner Family
DX: I73.9 Peripheral vascular disease, unspecified (principal)

== ENCOUNTER → 2024-12-30 | Outpatient (CLI) | payer MEDICARE ==
[~2024-12-30] MED LIST changes: -SILD20TA11 PO; +SILD20TA64 PO
[2024-12-30 12:03] LABS: ESTIMATED AVERAGE GLUCOSE 174.0 MG/DL (60-110)
== END ==
LOC: M LAB 10:04
PROVIDERS: ATTEND Nurse Practitioner Family
DX: E11.9 Type 2 diabetes mellitus without complications (principal)

== ENCOUNTER → 2025-01-03 | Outpatient (REF) | payer MEDICARE | LOC: M LAB REF 17:26 | PROVIDERS: ATTEND Plastic Surgery Surgery of the Hand | DX: L72.0 Epidermal cyst (principal) ==

== ENCOUNTER → 2025-01-09 | Outpatient (CLI) | payer MEDICARE ==
[2025-01-09 16:30] LABS: CHOLESTEROL LEVEL 175.0 MG/DL (<200); CHOLESTEROL RISK RATIO 3.89 (<5); LDL CHOLESTEROL 67.1 MG/DL (<100); NON-HDL-C 130.1 MG/DL; TRIGLYCERIDES LEVEL 315.0 MG/DL (<150)
== END ==
LOC: M LAB 15:24
PROVIDERS: ATTEND Nurse Practitioner Family
DX: E78.2 Mixed hyperlipidemia (principal)